=== PATIENT | female | born 1960 | race Two or more races ===

== ENCOUNTER 2022-12-16 21:42 | Emergency (ER) | payer MEDICAID, OTHER ==
[~2022-12-16] VITALS: Ht 149.9 cm; Wt 79.0 kg
[2022-12-17 02:26] VITALS: BP 123/70; PULSE 68; RESP 17; TEMP 98.2; O2SAT 98
[2022-12-17] MEDS ORDERED: SULF400T11 PO (02:59)
[2022-12-17] MEDS ORDERED: TETANUS-DIPTH-ACEL PERTUSSIS 0.5ML SYR Tdap IM ONE (03:00)
[2022-12-17] MEDS ORDERED: HYDROcodone-ACET 10/325MG TAB PO ONE (03:30)
== END 2022-12-17 03:42 | disposition home or self-care (01) ==
LOC: ER 21:42
DX: S61.012A Laceration without foreign body of left thumb without damage to nail, initial encounter (principal); E11.9 Type 2 diabetes mellitus without complications; Z88.6 Allergy status to analgesic agent; Z88.8 Allergy status to other drugs, medicaments and biological substances; W45.8XXA Other foreign body or object entering through skin, initial encounter; Y93.89 Activity, other specified; Y92.89 Other specified places as the place of occurrence of the external cause; Y99.8 Other external cause status
CPT/HCPCS: 12001; 90471; 90715